=== PATIENT | female | born 1995 | race African-American/Black ===

== ENCOUNTER 2016-12-30 18:19 | Emergency (ER) | payer SELFPAY ==
[~2016-12-30] VITALS: Ht 160 cm; Wt 60.5 kg
[2016-12-30 18:21] VITALS: BP 109/75; PULSE 80; RESP 16; TEMP 99.2; O2SAT 100
[2016-12-30] MEDS ORDERED: ACET325T PO (18:50)
[2016-12-30] MEDS ORDERED: ORPH100T99 PO (18:50)
[2016-12-30] MEDS ORDERED: IBUP-232 PO (18:50)
--- NOTE | 2016-12-30 18:59 | PD ---
HPI Chief Complaint: Injury Time Seen by Provider: 18:50 Travel History International Travel<30 days: No Contact w/Intl Traveler<30days: No Traveled to known affect area: No History of Present Illness HPI 21-year-old Afro[place] female presents the emergency department with ongoing intermittent complaints of right neck and shoulder pain which has been ongoing for year. 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 Patient states sometimes the pain is worse and causes pain to go down her right arm. Patient is also concerned about a skin lump on the right posterior lateral shoulder which is been present for at least a year, and unchanged. 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 She has no fevers, chills , or other symptoms. Patient was seen her PCP for all these issues but currently is not having any insurance. She has not tried taking anything for the above problems. She does admit to being very anxious and stressed. She has no known drug allergies. PFSH Past Medical History Medical History: Denies Significant Hx Hx Anticoagulant Therapy: No Diabetes: No Tetanus Vaccination: < 5 Years Influenza Vaccination: No ?: Not LMP: 2 weeks ago Past Surgical History Surgical History: No Previous Surgery Social History Alcohol Use: Yes (Rare) Tobacco Use: Yes Substance Use: Yes (Marijuana daily ) Allergies-Medications (Allergen,Severity, Reaction): Coded Allergies: No Known Allergies (Unverified , 12/30/16) Reported Meds & Prescriptions Reported Meds & Active Scripts Active Orphenadrine CR (Orphenadrine Citrate) 100 Mg Tab 100 Mg PO HS Ibuprofen 600 Mg Tab 600 Mg PO Q6H PRN Acetaminophen 325 Mg Tab 650 Mg PO Q6HR PRN Review of Systems General / Constitutional: No: Fever Eyes: No: Visual changes HENT: No: Headaches Cardiovascular: No: Chest Pain or Discomfort Respiratory: No: Shortness of Breath Gastrointestinal: No: Abdominal Pain Genitourinary: No: Dysuria Musculoskeletal: Positive: Myalgias, No: Arthralgias, Limited ROM, Pain Skin: No Rash Neurologic: No: Weakness Psychiatric: No: Depression Endocrine: No: Polydipsia Hematologic/Lymphatic: No: Easy Bruising Physical Exam Narrative GENERAL: Patient appears anxious but in no acute distress. SKIN: Warm and dry. Normal color. Normal turgor. Patient has a soft mobile lump on the right posterior lateral shoulder consistent with lipoma. There are no signs of infection or cellulitis. HEAD: Atraumatic. Normocephalic. EYES: Pupils equal and round. No scleral icterus. No injection or drainage. ENT: No nasal bleeding or discharge. Mucous membranes pink and moist. Pharynx is clear. Airway is patent. NECK: Trachea midline. Supple nontender. Patient is noted to have large nontender lymph nodes in the right greater than left posterior cervical chains. CARDIOVASCULAR: Regular rate and rhythm. RESPIRATORY: No accessory muscle use. Clear to auscultation. Breath sounds equal bilaterally. GASTROINTESTINAL: Abdomen soft, non-tender, nondistended. Hepatic and splenic margins not palpable. No CVA tenderness. MUSCULOSKELETAL: Extremities without clubbing, cyanosis, or edema. No obvious deformities. Right shoulder shows tenderness in the soft tissues of the cervical paraspinous and trapezius and subscapularis muscles. Range of motion of the right shoulder is normal without specific tenderness. There is no weakness. NEUROLOGICAL: Awake and alert. No obvious cranial nerve deficits. Motor grossly within normal limits. Five out of 5 muscle strength in the arms and legs. Normal speech. PSYCHIATRIC: Appropriate mood and affect; insight and judgment normal. Data Data Last Documented VS Vital Signs Date Time Temp Pulse Resp B/P Pulse Ox O2 Delivery O2 Flow Rate FiO2 12/30/16 18:21 99.2 80 16 109/75 100 MDM Medical Decision Making Medical Screen Exam Complete: Yes Emergency Medical Condition: Yes Differential Diagnosis Torticollis. Right shoulder muscle spasm. Lipoma. Lymphangitis. Narrative Course Patient is medically stable at time of exam. Lipoma was discussed and should be followed up on an outpatient basis. Patient will be treated with ibuprofen 600 mg 4 times a day #40. Patient also given acetaminophen 325 2 tablets every 6 hours when necessary #40. Patient also given Norflex 100 mg daily at bedtime #10. Patient should use heat followed by ice followed by gentle stretching. Patient should follow local primary care physician for further evaluation and treatment as discussed. Diagnosis Primary Impression: Muscle spasm of right shoulder Additional Impression: Lipoma of arm Qualified Code: D17.21 - Lipoma of right upper extremity Referrals: [facility] call for appointment Patient Instructions: Cervical Neck Strain Exercises (GEN), General Instructions, Lipoma (ED), Muscle Spasm (ED), Upper Back Exercises (GEN) Additional Instructions: Patient is medically stable at time of exam. Lipoma was discussed and should be followed up on an outpatient basis. Patient will be treated with ibuprofen 600 mg 4 times a day #40. Patient also given acetaminophen 325 2 tablets every 6 hours when necessary #40. Patient also given Norflex 100 mg daily at bedtime #10. Patient should use heat followed by ice followed by gentle stretching. Patient should follow local primary care physician for further evaluation and treatment as discussed. Med/Other Pt SpecificInfo: Prescription(s) given Scripts Orphenadrine ER 12 HR (Orphenadrine CR)100 Mg [id number] Mg PO HS #10 TAB Prov:Sandra Howard MD 12/30/16 Ibuprofen 600 Mg [id number] Mg PO Q6H PRN (Pain/Inflammation) #40 TAB Prov:Sandra Howard MD 12/30/16 Acetaminophen 325 Mg [id number] Mg PO Q6HR PRN (PAIN SCALE 4 TO 10) #40 TAB Prov:Sandra Howard MD 12/30/16 Disposition: 01 DISCHARGE HOME Condition: Stable Jackson Gilbert December 30, 2016 18:59
== END 2016-12-30 19:15 | disposition home or self-care (01) ==
LOC: PHEFT 18:19
DX: M62.838 Other muscle spasm (principal); D17.21 Benign lipomatous neoplasm of skin and subcutaneous tissue of right arm; I88.8 Other nonspecific lymphadenitis; Z72.0 Tobacco use
CPT/HCPCS: 99283